=== PATIENT | male | born 1985 | race Hispanic/Latino ===

== ENCOUNTER 2018-06-17 19:24 | Emergency (ER) | payer OTHER ==
[2018-06-17 19:29] VITALS: BP 144/88; PULSE 92; RESP 18; TEMP 98; O2SAT 99
[2018-06-17] MEDS ORDERED: Tdap Vaccine 0.5 ml Vial (10-64 yrs) IM ONE (19:56)
[2018-06-17] MEDS ORDERED: Lidocaine 2% MPF (5 ml) Inj INJ STA (20:01)
--- NOTE | 2018-06-17 20:01 | ED PDOC ---
Upper Extremity Pain/Injury Time Seen by Provider: 06/17/18 19:29 Chief Complaint (Nursing): Abnormal Skin Integrity Chief Complaint (Provider): left wrist laceration History Per: Patient History/Exam Limitations: no limitations Onset/Duration Of Symptoms: Mins (prior to arrival) Current Symptoms Are (Timing): Still Present Additional History Per: EMS Additional Complaint(s): 33 year old right hand dominant male presents to the ED via EMS s/p accidentally cutting his left wrist with a knife while trying to open a box prior to arrival. Patient called ambulance and was brought here. Patient has mild pain to affected area. He is not sure of last tetanus. PMD: none Past Medical History Reviewed: Historical Data, Nursing Documentation, Vital Signs Vital Signs: Last Vital Signs Temp 98 F 06/17/18 19:26 Pulse 92 H 06/17/18 19:26 Resp 18 06/17/18 19:26 BP 144/88 06/17/18 19:26 Pulse Ox 99 06/17/18 19:26 - Medical History Other PMH: ulcerative colitis - Surgical History Surgical History: No Surg Hx - Family History Family History: States: No Known Family Hx - Living Arrangements Living Arrangements: With Friends/Others - Social History Current smoker - smoking cessation education provided: No Alcohol: None Drugs: Denies - Immunization History Hx Tetanus Toxoid Vaccination: No (not sure of last tetanus booster) - Home Medications Home Medications: Ambulatory Orders Medication Instructions Recorded Cephalexin [Keflex] 500 mg PO TID #21 capsule 06/17/18 Ibuprofen [Motrin Tab] 800 mg PO Q8 PRN #20 tab 06/17/18 - Allergies Allergies/Adverse Reactions: Allergies Allergy/AdvReac Type Severity Reaction Status Date / Time No Known Allergies Allergy Verified 06/17/18 19:26 Review of Systems ROS Statement: Except As Marked, All Systems Reviewed And Found Negative Skin: Positive for: Other (laceration to left wrist) Physical Exam - Reviewed Nursing Documentation Reviewed: Yes Vital Signs Reviewed: Yes - Physical Exam Appears: Positive for: Well, Non-toxic, No Acute Distress Head Exam: Positive for: ATRAUMATIC, NORMAL INSPECTION, NORMOCEPHALIC Skin: Positive for: Normal Color. Negative for: Rash Eye Exam: Positive for: Normal appearance Extremity: Positive for: Normal ROM (of left wrist), Other (2 cm laceration to ulnar aspect of the left wrist; no active bleeding) Neurologic/Psych: Positive for: Alert, Oriented - ECG O2 Sat by Pulse Oximetry: 99 (RA) Pulse Ox Interpretation: Normal - Other Rad Left wrist x-ray X-Ray: Interpreted by Me, Viewed By Me X-Ray Interpretation: no fx, no dis, no FB Medical Decision Making Medical Decision Making: Time: 1957 Impression: 33 year old male with laceration to left wrist Plan: --Tetanus booster --Lidocaine 15mg IJ --Left wrist XR Patient agrees to wound repair by typewriter mechanic. Procedure Note: Under sterile conditions, laceration to wrist was anesthetized with 8 cc of 2% lidocaine without epi. Good anesthesia was achieved. Wound was irrigated with 30 cc of betadine and saline and was explored for foreign bodies, none noted. a vertical mattress suture was placed in center of wound followed by 5 simple interrupted sutures to repair the remainder of wound. Good wound approximation was achieved. Good bleeding control was achieved. Procedure was tolerated well by patient, no complications. Patient was given wound care instructions. Rx motrin and keflex provided and patient was referred to hand continuous yarn dyeing machine operator for follow up. Scribe Attestation: Documented by Nydia Vegas, acting as a scribe for Payton Quintanilla PA-C. Provider Scribe Attestation: All medical record entries made by the Scribe were at my direction and personally dictated by me. I have reviewed the chart and agree that the record accurately reflects my personal performance of the history, physical exam, medical decision making, and the department course for this patient. I have also personally directed, reviewed, and agree with the discharge instructions and disposition. Disposition - Clinical Impression Clinical Impression: Wrist laceration, Requires a booster tetanus - Patient ED Disposition Is Patient to be Admitted: No Counseled Patient/Family Regarding: Studies Performed, Diagnosis, Need For Followup, Rx Given - Disposition Referrals: Jacquelyn Ortega MD [Staff Provider] - Disposition: Routine/Home Disposition Time: 21:08 Condition: STABLE Additional Instructions: Wash wound daily with soap and water. Apply bacitracin once per keep wound covered. Take prescription meds as directed. Suture removal 10-14 days. Follow- up with hand specialist as needed. Prescriptions: Cephalexin [Keflex] 500 mg PO TID #21 capsule Ibuprofen [Motrin Tab] 800 mg PO Q8 PRN #20 tab PRN Reason: Pain, Moderate (4-7) Instructions: Laceration Repair With Stitches (DC), Diphtheria and Tetanus Toxoids, and Acellular Pertussis Vaccine Forms: [facility] ([place])
[2018-06-17] MEDS ORDERED: Lidocaine PF 2% (5 ml) Inj (For Cardiac Arrhy) ONE (20:07)
[2018-06-17] MEDS ORDERED: Lidocaine PF 2% (5 ml) Inj (For Cardiac Arrhy) IJ ONE (20:30)
[2018-06-17] MEDS ORDERED: Lidocaine PF 2% (5 ml) Inj (For Cardiac Arrhy) IV ONE (20:30)
[2018-06-17] MEDS ORDERED: Lidocaine 2% MPF (5 ml) Inj INJ ONE (20:30)
--- NOTE | 2018-06-18 08:56 | RAD ---
Date of service: 06/17/2018 PROCEDURE: Left Wrist Radiographs. HISTORY: Laceration COMPARISON: None. FINDINGS: BONES: Bone alignment and mineralization are normal. There is no acute displaced fracture or bone destruction. JOINTS: Normal. No dislocation. SOFT TISSUES: There is soft tissue irregularity at the medial wrist joint. OTHER FINDINGS: None. IMPRESSION: No acute fracture or dislocation. No radiopaque foreign body. Laceration in the medial periarticular soft tissues.
== END 2018-06-17 21:17 | disposition home or self-care (01) ==
LOC: H.ER 19:24
DX: S61.512A Laceration without foreign body of left wrist, initial encounter (principal); Z23 Encounter for immunization; W26.0XXA Contact with knife, initial encounter